=== PATIENT | female | born 1945 | race Caucasian/White ===

== ENCOUNTER 2017-05-03 05:35 | Inpatient (IN) ==
[2017-04-26 13:56] LABS: Basophils # 0.1 10*3/uL (0.0-0.2); Basophils % 0.5 % (0.0-0.8); Eosinophils # 0.2 10*3/uL (0.0-0.87); Eosinophils % 2.5 % (0.00-10.9); Hematocrit 39.4 VOL% (35.7-47.0); Hemoglobin 13.3 GM/DL (12.0-16.0); Immature Granulocytes % 0.7 %; Immature Granulocytes Absolute 0.06 #; Lymphocytes # 2.6 10*3/uL (1.4-4.0); Lymphocytes % 27.7 % (21.3-54.2); Mean Corpuscular HGB Conc 33.8 GM/DL (32-36); Mean Corpuscular Hemoglobin 30 PG (27-34); Mean Corpuscular Volume 88.5 FL (87-102); Mean Platelet Volume 10.1 FL (9.6-12.0); Monocytes # 0.9 10*3/uL (0.11-0.8); Monocytes % 9.2 % (1.7-12.7); Neutrophils # 5.5 10*3/uL (1.4-7.4); Neutrophils % 59.4 % (38.7-73.9); Platelet Count 252 T/CUMM (130-400); Red Blood Count 4.45 MC/CUMM (3.8-5.5); Red Cell Distribution Width 13.1 % (9.3-17.3); White Blood Count 9.2 T/CUMM (4-12)
[2017-04-26 14:05] LABS: Amorphous Crystals,Urine Few /HPF (Few); Apearance,Urine CLOUDY (Clear); Bacteria,Urine Occasional /HPF (Few); Bilirubin,Urine Negative (Negative); Blood, Urine Negative (Negative); Glucose,Urine (UA) Negative (Negative); Ketones,Urine Negative (Negative); Mucus,Urine Occasional /LPF (Occasional); Nitrite,Urine Negative (Negative); Protein,Urine Negative; RBC,Urine 1 /HPF (0-4); Squamous Epithelial Cell,Urine Occasional /HPF (0-10); Urine Color Yellow (Yellow); Urine Urobilinogen < 2.0 EU/DL (0.2-1.0); WBC,Urine 49 /HPF (0-6)
[2017-04-26 14:07] LABS: INR 3.6; PT Patient Result 41.9 SECS; Partial Thromboplastin Time 46.7 SECS (0-40)
--- NOTE | 2017-04-26 14:07 | EKG Report ---
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
[2017-04-26 14:47] LABS: Albumin 3.8 G/DL (3.4-5.0); Bilirubin,Total 0.4 MG/DL (0.2-1.0); Calcium 8.9 MG/DL (8.5-10.1); Osmolality,Calculated 283.4 MOS/KG (273-304); Potassium 3.4 MMOL/L (3.5-5.1); Total Protein 6.5 G/DL (6.4-8.3)
--- NOTE | 2017-04-26 15:21 | XRay Report ---
XR chest 2V Indication: Respiratory preoperative evaluation Comparison: 26 Mar 2016 Findings: The heart and mediastinum are normal in size and configuration. The pulmonary vascularity is normal in caliber. No lung infiltrates, effusions, pneumothorax or other abnormality is demonstrated. Impression: Normal chest x-ray PROCEDURE INTERPRETED AT [facility] DEPARTMENT OF RADIOLOGY Final Report Signed by: Dr. Shaw Valdes
[2017-05-03] MEDS ORDERED: FAMOTIDINE 20 MG TABLET PO ONE (06:00)
[2017-05-03] MEDS ORDERED: LORazepam 1 MG TABLET PO ONE (06:00)
--- NOTE | 2017-05-03 06:46 | History and Physical Update ---
History and Physical Update - History and Physical H&P was reviewed, the patient examined and there: are no changes in the patients condition since last H&P was completed. - Physical Exam Mental Status: alert and oriented Heart: regular rate and rhythm Lung: clear to auscultation (Placed on insulin for diabetic control)
[2017-05-03 07:00] LABS: INR 1.6; PT Patient Result 17.5 SECS
[2017-05-03] MEDS ORDERED: VANCOMYCIN INJ 1,000 MG in SODIUM CHLORIDE 0.9% 250 ML IV ONE ×2 (07:00→21:00)
[2017-05-03 07:32] LABS: INR 1.6; PT Patient Result 17.4 SECS; Partial Thromboplastin Time 32.4 SECS (0-40)
[2017-05-03] MEDS ORDERED: FAMOTIDINE 20 MG TABLET ONE (07:39)
[2017-05-03] MEDS ORDERED: ceFAZolin 1,000 MG VIAL ONE (07:39)
[2017-05-03] MEDS ORDERED: SODIUM CHLORIDE 0.9% 100 ML IV ONE (07:39)
[2017-05-03] MEDS ORDERED: LORazepam 1 MG TABLET ONE (07:39)
[2017-05-03] MEDS ORDERED: VANCOMYCIN 1,000 MG VIAL ONE (07:39)
[2017-05-03] MEDS ORDERED: ROPIVACAINE 0.5% 30 ML VIAL ONE (08:20)
[2017-05-03] MEDS ORDERED: LACTATED RINGERS 1,000 ML IV SCH (09:30)
[2017-05-03] MEDS ORDERED: TRANEXAMIC ACID 1,000 MG/10 ML VIAL IV ONE (09:53)
[2017-05-03] MEDS ORDERED: BACITRACIN OINT 0.9 GM PACK TOP ONE (09:53)
[2017-05-03] MEDS ORDERED: ZALEPLON 5 MG CAPSULE PO PRN (11:05)
[2017-05-03] MEDS ORDERED: GLUCAGON 1 MG VIAL IM PRN (11:05)
[2017-05-03] MEDS ORDERED: MAGNESIUM HYDROXIDE SUSP 30 ML UDCUP PO PRN (11:05)
[2017-05-03] MEDS ORDERED: DEXTROSE 50% 25 GM/50 ML VIAL IV PRN (11:05)
[2017-05-03] MEDS ORDERED: MORPHINE 2 MG/1 ML SYRINGE IV PRN ×2 (11:05)
[2017-05-03] MEDS ORDERED: diphenhydrAMINE CAP 25 MG CAPSULE PO PRN (11:05)
[2017-05-03] MEDS ORDERED: ONDANSETRON 4 MG/2 ML VIAL IV PRN ×2 (11:05→11:27)
--- NOTE | 2017-05-03 11:11 | Operative Note ---
Date of procedure: 05/03/17 Procedure: DIAGNOSIS: Right knee primary osteoarthrosis PROCEDURE: Right total knee arthroplasty (cpt #62837) SURGEON: Migel ANESTHESIA: General with a postoperative adductor canal block PROCEDURE and FINDINGS: After adequate was induced, the patient's knee was prepped and draped in the usual sterile fashion. The limb was exsanguinated with Esmarch. Tourniquet was inflated to 300 mmHg. A median parapatellar approach was made. Femur was cut using an intramedullary guide and a 4 in 1 cutting jig in 5 degrees of valgus. ACL and menisci were excised. Tibia was cut using intramedullary guide. Patella was cut using freehand technique. Components were trialed. Tibial fin was prepared. Components are cemented in place using Palacos cement and modern cementing techniques. Cement was removed. A 1/8 inch Hemovac drain was placed. The knee was well-balanced and full range of motion with central tracking patella. Deep layers closed with 0-0 Vicryl. Superficial layers were closed with 2-0 and 3-0 Vicryl. Skin was approximated with raj. Bacitracin and a sterile dressing was applied. Patient was transferred to recovery. A postoperative adductor canal block is anticipated. COMPONENTS: The Stephen Persona system was used. 7 CR narrow femur, D natural tibia, 10 mm liner, 29 mm patella TOURNIQUET TIME: 44 minutes Surgeon / Physician: Fredy Lainez Jr. Results - Labs CBC & BMP: 04/26/17 13:47 04/26/17 13:47 Discharge Plan - Discharge Medications No Action Glucosamine 1,500 mg PO DAILY Pramipexole [Mirapex] 0.25 mg PO BEDTIME Atenolol 100 mg PO DAILY Losartan [Cozaar] 50 mg PO DAILY Warfarin [Coumadin] 5 mg PO DAILY@1800 Ascorbic Acid [Vitamin C] 1,000 mg PO DAILY Triamterene/Hydrochlorothiazid [Triamterene-Hctz 75-50 mg Tab] 1 each PO DAILY Levothyroxine Tab [Synthroid Tab] 175 mcg PO DAILY@0700 Digoxin Tab [Lanoxin Tab] 0.125 mg PO DAILY Vitamin E 400 unit PO DAILY Sertraline [Zoloft] 25 mg PO DAILY Dicyclomine Cap/Tab [Bentyl Cap/Tab] 10 mg PO DAILY Glimepiride 1 mg PO BID Dicyclomine Cap/Tab [Bentyl Cap/Tab] 10 mg PO QID Atorvastatin [Lipitor] 20 mg PO DAILY Pantoprazole Tab [Protonix Tab] 40 mg PO BID Celecoxib [Celebrex] 200 mg PO DAILY Insulin Degludec [Tresiba Flextouch U-100] 20 unit SQ BEDTIME - Follow Up or Referral - Forms/Instructions
[2017-05-03] MEDS ORDERED: HYDROmorphone 2 MG/1 ML VIAL ONE (11:22)
[2017-05-03] MEDS ORDERED: MIDAZOLAM 2 MG/2 ML VIAL ONE (11:24)
[2017-05-03] MEDS ORDERED: GLYCOPYRROLATE 0.4 MG/2 ML VIAL ONE (11:24)
[2017-05-03] MEDS ORDERED: fentaNYL 100 MCG/2 ML VIAL ONE (11:24)
[2017-05-03] MEDS ORDERED: PROPOFOL 200 MG/20 ML VIAL IV ONE (11:24)
[2017-05-03] MEDS ORDERED: ONDANSETRON 4 MG/2 ML VIAL ONE (11:24)
[2017-05-03] MEDS ORDERED: ePHEDrine 50 MG/ML AMP ONE (11:24)
[2017-05-03] MEDS ORDERED: DESFLURANE 1 UNIT/15 MINUTE INH ONE (11:24)
[2017-05-03] MEDS ORDERED: DEXAMETHASONE 10 MG/1 ML VIAL ONE (11:24)
[2017-05-03] MEDS ORDERED: NEOSTIGMINE 10 MG/10 ML VIAL ONE (11:25)
[2017-05-03] MEDS ORDERED: LACTATED RINGERS 1,000 ML IV ONE (11:25)
[2017-05-03] MEDS ORDERED: ROCURONIUM 100 MG/10 ML VIAL IV ONE (11:25)
[2017-05-03] MEDS: HYDROmorphone 2 MG/1 ML VIAL IV PRN ×4 (11:25→11:58)
[2017-05-03] MEDS: INSULIN LISPRO 100 UNIT/ML SUBCUT SCH ×3 (13:02→21:10)
[2017-05-03] MEDS: KETOROLAC 30 MG/1 ML VIAL IV SCH ×2 (13:21→18:29)
--- NOTE | 2017-05-03 14:57 | Cardiology Consult Note ---
Rachel Slaughter April RN, am scribing for, and in the presence of, Jocelin Cooper MD 14:57. Assessment and Plan - Time spent with patient Time spent with patient: Greater than 30 minutes (Due to assessment, planning, documentation, medication review) (1) Paroxysmal atrial fibrillation Status: Chronic Current Visit: Yes (2) Mild aortic insufficiency Status: Chronic Current Visit: Yes (3) Diabetes mellitus Status: Chronic Current Visit: Yes (4) Hypertension Status: Chronic Current Visit: Yes (5) ANDRIA on CPAP Status: Chronic Current Visit: Yes (6) Status post total left knee replacement Status: Acute Current Visit: Yes History of Present Illness - Data of Consult Patient: known to practice within the last 3 years Consult date: 05/03/17 Requesting Physician: Fredy Lainez Jr. - Consult Narrative Reason for consult: Follow postoperatively History of present illness: Nca Certified Concierge: Dr. Reid Ms. Garcia is a 72 year old female who is routinely followed by Dr. Reid with a history of aortic insufficiency, paroxysmal atrial fibrillation, diabetes, hypertension, thyroid disease, and obstructive sleep apnea (has been reports she uses CPAP nightly). She is sedated and sleeping soundly, the assisted with history. Echo done 04/01/2017 with ejection fraction 60% and aortic valve sclerosis without stenosis. EKG done 620 showed sinus rhythm with heart rate of 58. She had a stress test done at Dr. Reid's office 03/15/2016 that was felt to be negative. Surgical history includes appendectomy, breast biopsy, hysterectomy, and thyroidectomy. Family history of father with lung cancer, sister with heart problems, and mother and siblings with diabetes. She is a lifetime non-smoker. She saw Dr. Reid in the office April 05, 2017 and he thought she was a reasonable risk for the planned left knee replacement. She was admitted today and had left total knee replacement by Dr. Lainez. She is seen now status post surgery and is resting in bed no acute distress. Currently she is sleeping, but her states she was awake earlier. He said she did not complain of chest pain or shortness of breath. Vital signs are stable. Dr. Reid does mention in his note that it was okay for her to stop the Coumadin for the surgery, but that she need to resume it as soon as possible. It is scheduled to be restarted tonight at 5 mg daily. Assessment and plan: 1. Paroxysmal atrial fibrillation-chronic, stable, currently sinus rhythm. She is on Coumadin and this has been restarted. 2. Mild aortic insufficiency-chronic stable. 3. Diabetes mellitus-chronic stable. 4. Hypertension-chronic stable. 5. ANDRIA on CPAP-chronic stable. 6. Status post left total knee replacement CC: Fredy Lainez Jr., - Home Medications and Allergies Home Medications: Home Medications Medication Instructions Recorded Confirmed Type Atenolol 100 mg PO DAILY 09/19/15 05/03/17 History Glucosamine 1,500 mg PO DAILY 09/19/15 05/03/17 History Losartan [Cozaar] 50 mg PO DAILY 09/19/15 05/03/17 History Pramipexole [Mirapex] 0.25 mg PO BEDTIME 09/19/15 05/03/17 History Warfarin [Coumadin] 5 mg PO DAILY@1800 09/19/15 05/03/17 History Ascorbic Acid [Vitamin C] 1,000 mg PO DAILY 09/23/15 05/03/17 History Digoxin Tab [Lanoxin Tab] 0.125 mg PO DAILY 09/23/15 05/03/17 History Levothyroxine Tab [Synthroid Tab] 175 mcg PO DAILY@0700 09/23/15 05/03/17 History Triamterene/Hydrochlorothiazid 1 each PO DAILY 09/23/15 05/03/17 History [Triamterene-Hctz 75-50 mg Tab] Vitamin E 400 unit PO DAILY 09/23/15 05/03/17 History Atorvastatin [Lipitor] 20 mg PO DAILY 04/26/17 05/03/17 History Celecoxib [Celebrex] 200 mg PO DAILY 04/26/17 05/03/17 History Dicyclomine Cap/Tab [Bentyl 10 mg PO QID 04/26/17 05/03/17 History Cap/Tab] Glimepiride 1 mg PO BID 04/26/17 05/03/17 History Pantoprazole Tab [Protonix Tab] 40 mg PO BID 04/26/17 05/03/17 History Sertraline [Zoloft] 25 mg PO DAILY 04/26/17 05/03/17 History Insulin Degludec [Tresiba 20 unit SQ BEDTIME 05/03/17 05/03/17 History Flextouch U-100] Allergies/Adverse Reactions: Allergies Allergy/AdvReac Type Severity Reaction Status Date / Time gabapentin Allergy Severe bp Verified 05/03/17 07:13 decreases severely ROS unobtainable: other (She is sedated) Medical,Surgical,& Family Hx - Medical History Cardio: History of: Cardiac Dysrhythmia (Paroxysmal atrial fibrillation), Hypertension, PVD, Valvular Heart Disease (Mild aortic insufficiency) Psychological: History of: Anxiety Disorders Neurology: History of: Peripheral Neuropathy HEENT: History of: Eye Problem (GLASSES) Endocrine: History of: Diabetes Mellitus (NIDDM), Dyslipidemia, Thyroid Disorder Rheumatology: History of;: Rheumatoid Arthritis Respiratory: History of: Obstructive Sleep Apnea (CPAP) Genitourinary: History of: Bladder Problem (BLADDER SLING), Recurring Urinary Tract Infections Gastrointestinal: History of: GERD Musculoskeletal: History of: Back/Neck Problems (LOWER BACK), Musculoskeletal Problems (BROKEN PELVIS 2006) Reproductive: History of: Ovarian Cysts Other: History of: Miscellaneous Medical Problems (FIBROID TUMOR ON BACK REMOVED 2013) - Surgical History HEENT Surgeries: Surgical HX of: Thyroid Surgery (1991) Abdominal Surgeries: Surgical HX of: Abdominal Surgery, Appendectomy, Colonoscopy Reproductive Surgeries: Surgical HX of;: Breast Surgery (FIBROID TUMORS REMOVED BILATERAL, LEFT BREAST BX), Gynecologic Surgery, Hysterectomy Orthopedic Surgeries: Surgical HX of;: Implanted Devices (LEFT BREAST), Orthopedic Surgery (Left total knee) - Family History Family History: Reports;: Family Cancer (FATHER), Family Diabetes (MOTHER and siblings), Family Heart Disease (Sister), Family Hypertension (MOTHER) - Social History Smoking Status: Never smoker Have you smoked in the last 12 months: No Frequency of Alcohol Use: None Type of Drug Use: None Marital Status: Lives With:: Spouse Functional capacity: uses cane/walker Physical Examination Vital Signs Temp Pulse Resp BP Pulse Ox 97.9 F 55 L 20 150/75 95 05/03/17 07:31 05/03/17 07:31 05/03/17 07:31 05/03/17 07:31 05/03/17 07:31 General: Present: Appears Well, No Apparent Distress HEENT: Present: PERRL, Mucus Membranes Moist Neck: Present: Supple Neck, Midline Trachea, No Bruit Cardiac: Present: Reg Rate and Rhythm, No Murmur, Bradycardia Lungs: Present: Normal Breath Sounds, Oxygen (Via nasal cannula), No Wheeze, Rales, Rhonchi Neuro: Absent: Resting Tremor, Essential Tremor Abdomen: Present: Soft, Active Bowel Sounds, No Masses, Non-Tender. Absent: Distended Skin: Absent: Rash, Suspicious Lesions Musculoskeletal: Present: Decreased Range of Motion, Pain in Joint Gait: Present: Poor Gait Extremities: Present: No Edema, Normal Upper Extr. Pulses, Normal Lower Extr. Pulses, Other (Unable to assess left lower extremity because of dressing). Absent: Normal Gait Result/EKG - Labs CBC & BMP: 04/26/17 13:47 04/26/17 13:47 Lab Results: I have reviewed the past 24 hour labs Labs: Laboratory Results - last 24 hr 05/03/17 05/03/17 05/03/17 06:40 06:40 06:40 INR 1.6 1.6 PT Patient/Control Mix 17.5 D 17.4 Circ Anticoag PTT 32.4 D POC Glucose Blood Type O POSITIVE Antibody Screen Negative 05/03/17 05/03/17 06:41 13:01 INR PT Patient/Control Mix Circ Anticoag PTT POC Glucose 167 H 193 H Blood Type Antibody Screen IKenneth Jennifer, MD, personally performed the services described in this documentation, ascribed by Nydia Ramos RN in my presence, and it is both accurate and complete 457 .
[2017-05-03] MEDS: ACETAMINOPHEN 500 MG TABLET PO SCH ×3 (15:00→21:18)
[2017-05-03] MEDS: GLIMEPIRIDE 2 MG TABLET PO SCH (16:57)
--- NOTE | 2017-05-03 17:33 | Orthopedic Progress Note ---
Orthopedics - Subjective Interval history: Comfortable postop. She was able to work with therapy in the bed. Dressing clean, dry and intact. Right foot and ankle neurovascularly unchanged. Plan: Continue with orders. Exam - Constitutional Vitals: Period Temp Pulse Resp BP Sys/Soria Pulse Ox Last 24 Hr 97.7 F-98.3 F 50-68 16-20 98-151/56-75 93-99 Results - Labs CBC & BMP: 04/26/17 13:47 04/26/17 13:47
[2017-05-03] MEDS: DICYCLOMINE 10 MG CAPSULE PO SCH ×3 (18:03→21:10)
[2017-05-03] MEDS: WARFARIN 5 MG TABLET PO SCH (18:03)
[2017-05-03] MEDS: oxyCODONE IR 5 MG TABLET PO PRN (18:03)
[2017-05-03] MEDS: LACTATED RINGERS 1,000 ML IV SCH (18:04)
[2017-05-03] MEDS: ceFAZolin 2,000 MG in PREMIX 1 EACH IV SCH (18:05)
[2017-05-03] MEDS: PRAMIPEXOLE 0.25 MG TABLET PO SCH (21:10)
[2017-05-03] MEDS: DOCUSATE SODIUM 100 MG CAPSULE PO SCH (21:10)
[2017-05-03] MEDS: PANTOPRAZOLE 40 MG TABLET PO SCH (21:10)
[2017-05-03] MEDS: TRESIBA SQ SCH (21:15)
[2017-05-04] MEDS: LACTATED RINGERS 1,000 ML IV SCH (00:19)
[2017-05-04] MEDS: KETOROLAC 30 MG/1 ML VIAL IV SCH ×2 (00:41→06:06)
[2017-05-04] MEDS: ceFAZolin 2,000 MG in PREMIX 1 EACH IV SCH (02:36)
[2017-05-04] MEDS: ACETAMINOPHEN 500 MG TABLET PO SCH ×2 (02:41→09:44)
[2017-05-04] MEDS: oxyCODONE IR 5 MG TABLET PO PRN ×2 (04:24→13:54)
[2017-05-04 05:15] LABS: Basophils % 0.1 % (0.0-0.8); Hematocrit 29.8 VOL% (35.7-47.0); Immature Granulocytes % 0.9 %; Lymphocytes # 1.2 10*3/uL (1.4-4.0); Lymphocytes % 10.6 % (21.3-54.2); Mean Corpuscular HGB Conc 33.6 GM/DL (32-36); Mean Corpuscular Hemoglobin 30 PG (27-34); Mean Platelet Volume 10.5 FL (9.6-12.0); Monocytes # 0.9 10*3/uL (0.11-0.8); Monocytes % 8.5 % (1.7-12.7); Neutrophils # 8.9 10*3/uL (1.4-7.4); Neutrophils % 79.9 % (38.7-73.9); Platelet Count 176 T/CUMM (130-400); Red Blood Count 3.31 MC/CUMM (3.8-5.5); Red Cell Distribution Width 13.2 % (9.3-17.3); White Blood Count 11.1 T/CUMM (4-12)
[2017-05-04 05:33] LABS: INR 1.4
[2017-05-04 05:49] LABS: Calcium 7.7 MG/DL (8.5-10.1)
[2017-05-04] MEDS: LEVOTHYROXINE 175 MCG TABLET PO SCH (06:06)
--- NOTE | 2017-05-04 08:00 | Orthopedic Progress Note ---
Orthopedics - Subjective Interval history: Doing well post op. dressing dry. nv ok. mobilize with therapy. check xrays. Exam - Constitutional Vitals: Period Temp Pulse Resp BP Sys/Soria Pulse Ox Last 24 Hr 97.0 F-98.7 F 50-70 16-20 98-157/56-69 93-99 Results - Labs CBC & BMP: 05/04/17 04:27 05/04/17 04:27
[2017-05-04] MEDS ORDERED: DICYCLOMINE 10 MG CAPSULE PO SCH (09:00)
[2017-05-04] MEDS: SERTRALINE 25 MG TABLET PO SCH (09:43)
[2017-05-04] MEDS: GLUCOSAMINE 500 MG TABLET PO SCH (09:44)
[2017-05-04] MEDS: DOCUSATE SODIUM 100 MG CAPSULE PO SCH ×2 (09:44→21:26)
[2017-05-04] MEDS: ASCORBIC ACID 500 MG TABLET PO SCH (09:44)
[2017-05-04] MEDS: VITAMIN E 400 UNIT CAPSULE PO SCH (09:44)
[2017-05-04] MEDS: PANTOPRAZOLE 40 MG TABLET PO SCH ×2 (09:44→21:26)
[2017-05-04] MEDS: DICYCLOMINE 10 MG CAPSULE PO SCH ×4 (09:44→21:26)
[2017-05-04] MEDS: LOSARTAN 50 MG TABLET PO SCH (09:45)
[2017-05-04] MEDS: INSULIN LISPRO 100 UNIT/ML SUBCUT SCH ×4 (09:45→21:27)
[2017-05-04] MEDS: GLIMEPIRIDE 2 MG TABLET PO SCH ×2 (09:45→16:28)
[2017-05-04] MEDS: ATORVASTATIN 20 MG TABLET PO SCH (09:45)
[2017-05-04] MEDS: TRIAMTERENE/HCTZ 75-50 MG TABLET PO SCH (09:45)
[2017-05-04] MEDS: ATENOLOL 100 MG TABLET PO SCH (11:33)
[2017-05-04] MEDS: DIGOXIN 0.125 MG TABLET PO SCH (12:09)
--- NOTE | 2017-05-04 12:37 | Cardiology Progress Note ---
<Shannon Oconnell E - Last Filed: 05/04/17 12:24> Assessment and Plan - Time spent with patient Time spent with patient: Greater than 30 minutes (1) High risk medication use Status: Chronic Assessment and plan: SEE PLAN OF CARE LISTED BELOW Current Visit: Yes (2) Paroxysmal atrial fibrillation Status: Chronic Assessment and plan: SEE PLAN OF CARE LISTED BELOW Current Visit: Yes (3) Diabetes mellitus Status: Chronic Assessment and plan: SEE PLAN OF CARE LISTED BELOW Current Visit: Yes (4) Hypertension Status: Chronic Assessment and plan: SEE PLAN OF CARE LISTED BELOW Current Visit: Yes (5) ANDRIA on CPAP Status: Chronic Assessment and plan: SEE PLAN OF CARE LISTED BELOW Current Visit: Yes (6) Status post total left knee replacement Status: Chronic Assessment and plan: SEE PLAN OF CARE LISTED BELOW Current Visit: Yes (7) Anemia Status: Acute Assessment and plan: SEE PLAN OF CARE LISTED BELOW Current Visit: Yes Cardiology - PN: Subj Interval history: BRANCH LENDING OFFICER: DR. WHITMAN Ms. Garcia, 72WF, has history of PAF (for which she takes Coumadin for stroke prevention), diabetes, hypertension, thyroid disease, and obstructive sleep apnea (has been reports she uses CPAP nightly). Echocardiogram 2015: EF 60%, no significant valvular abnormality. Stress test March 15, 2016: No evidence of reversible ischemia, low risk. Patient was admitted May 03, 2017 for elective left total knee arthroplasty. She underwent said procedure without complication. Cardiology was consulted for management of her atrial fibrillation. MAY 04, 2017: Overnight, patient has done well. She denies having significant pain and appears very comfortable. She has just completed exercises with the physical therapist and tolerated well. Denies chest pain, heaviness, tightness or shortness of breath. On arrival, INR was 1.6. This morning it is 1.4. Home dose of Coumadin was initiated last evening. We will continue to follow her INRs daily as well as other labs. Overall, blood pressures have been adequately controlled on beta tunde, ARB. Heart rate well controlled as well. Hopefully, patient may be eligible for discharge tomorrow or Tuesday. ASSESSMENT/PLAN: 1. PAF - upon examination seems to be in normal sinus rhythm. Coumadin was reinitiated last evening. Continue to follow INRs daily. 2. HYPERTENSION - overall, adequately controlled on beta blockade and ARB. 3. DIABETES - continue current plan of care 4. ANDRIA - uses sleep device routinely 5. HIGH RISK MEDICATION - Coumadin for stroke prevention. TRINA VASC SCORE 4. 6. S/P LEFT TOTAL KNEE ARTHROPLASTY - progressing well post knee surgery. 7. ANEMIA - stable post surgery. Continue to follow daily. Exam (Progress Note) - Constitutional Vitals: Period Temp Pulse Resp BP Sys/Soria Pulse Ox Last 24 Hr 97.0 F-98.7 F 50-70 16-20 123-159/57-69 93-99 Exam: General: [Appears well with no apparent distress.] [Pleasant and cooperative. ] [Appears comfortable.] HEENT: [PERRL, normocephalic, atraumatic. Mucous membranes moist. No jaundice noted. Conjunctiva moist and clear, sclerae anicteric] Neck: No JVD/HJR, no thyromegaly or lymphadenopathy noted. No carotid bruit appreciated Cardiac: [Regular rate and rhythm.] [No obvious murmur, rub or gallop.] Lungs: [Clear to auscultation without accessory muscle use to assist the respiratory pattern.] Not requiring oxygen Abdomen: Soft, bowel sounds normoactive. Nontender and nondistended. No abdominal bruit or thrill noted. No masses noted. Musculoskeletal: Pain to left knee with movement. No decreased range of motion is noted to other extremities, excluding left lower extremity. Extremities: No clubbing, cyanosis noted. [ No edema noted.] Upper extremity pulses 2+. Lower extremity pulses 2+. Left knee with intact equipment. Capillary refill less than 3 seconds. Skin: No unusual lesions or rashes. No skin breakdown appreciated. Neuro: Awake, alert and oriented 3. No essential tremor is appreciated. Result/EKG - Labs CBC & BMP: 05/04/17 04:27 05/04/17 04:27 Lab Results: I have reviewed the past 24 hour labs Labs: Laboratory Results - last 24 hr 05/03/17 05/03/17 05/03/17 13:01 15:23 18:51 WBC RBC Hgb Hct MCV MCH MCHC RDW Plt Count MPV Neut % (Auto) Lymph % (Auto) [place] % (Auto) Eos % (Auto) Baso % (Auto) Neut # (Auto) Lymph # (Auto) [place] # (Auto) Eos # (Auto) Baso # (Auto) Immature Gran % Nucleated RBC % Immature Gran # Nucleated RBCs # INR PT Patient/Control Mix Sodium Potassium Chloride Carbon Dioxide Anion Gap BUN Creatinine GFR Calculation BUN/Creatinine Ratio Glucose POC Glucose 193 H 210 H 195 H Calculated Osmolality Calcium 05/04/17 05/04/17 05/04/17 04:27 04:27 04:28 WBC 11.1 RBC 3.31 L Hgb 10.0 L Hct 29.8 L MCV 90.0 MCH 30 MCHC 33.6 RDW 13.2 Plt Count 176 MPV 10.5 Neut % (Auto) 79.9 H Lymph % (Auto) 10.6 L [place] % (Auto) 8.5 Eos % (Auto) 0.0 Baso % (Auto) 0.1 Neut # (Auto) 8.9 H Lymph # (Auto) 1.2 L [place] # (Auto) 0.9 H Eos # (Auto) 0.0 Baso # (Auto) 0.0 Immature Gran % 0.9 Nucleated RBC % 0.0 Immature Gran # 0.10 Nucleated RBCs # 0.00 INR 1.4 PT Patient/Control Mix 15.0 Sodium 143 Potassium 4.0 Chloride 105 Carbon Dioxide 26 Anion Gap 16.0 H BUN 22 H Creatinine 1.00 GFR Calculation 67 BUN/Creatinine Ratio 22.00 H Glucose 170 H POC Glucose Calculated Osmolality 291.0 Calcium 7.7 L 05/04/17 07:00 WBC RBC Hgb Hct MCV MCH MCHC RDW Plt Count MPV Neut % (Auto) Lymph % (Auto) [place] % (Auto) Eos % (Auto) Baso % (Auto) Neut # (Auto) Lymph # (Auto) [place] # (Auto) Eos # (Auto) Baso # (Auto) Immature Gran % Nucleated RBC % Immature Gran # Nucleated RBCs # INR PT Patient/Control Mix Sodium Potassium Chloride Carbon Dioxide Anion Gap BUN Creatinine GFR Calculation BUN/Creatinine Ratio Glucose POC Glucose 163 H Calculated Osmolality Calcium <Jocelin Cooper - Last Filed: 05/04/17 15:40> Assessment and Plan (1) Paroxysmal atrial fibrillation Status: Chronic Current Visit: Yes (2) Mild aortic insufficiency Status: Chronic Current Visit: Yes (3) Diabetes mellitus Status: Chronic Current Visit: Yes (4) Hypertension Status: Chronic Current Visit: Yes (5) ANDRIA on CPAP Status: Chronic Current Visit: Yes (6) Status post total left knee replacement Status: Chronic Current Visit: Yes Cardiology - PN: Subj Interval history: I have personally interviewed and evaluated the patient, reviewed the chart and discussed medical decision-making with Practitioner Kourtney. I have read this note and agree with her documentation here in. Exam (Progress Note) - Constitutional Vitals: Period Temp Pulse Resp BP Sys/Soria Pulse Ox Last 24 Hr 97.0 F-98.7 F 52-70 16-20 123-159/57-66 93-98 Result/EKG - Labs CBC & BMP: 05/04/17 04:27 05/04/17 04:27 Labs: Laboratory Results - last 24 hr 05/03/17 05/03/17 05/04/17 15:23 18:51 04:27 WBC 11.1 RBC 3.31 L Hgb 10.0 L Hct 29.8 L MCV 90.0 MCH 30 MCHC 33.6 RDW 13.2 Plt Count 176 MPV 10.5 Neut % (Auto) 79.9 H Lymph % (Auto) 10.6 L [place] % (Auto) 8.5 Eos % (Auto) 0.0 Baso % (Auto) 0.1 Neut # (Auto) 8.9 H Lymph # (Auto) 1.2 L [place] # (Auto) 0.9 H Eos # (Auto) 0.0 Baso # (Auto) 0.0 Immature Gran % 0.9 Nucleated RBC % 0.0 Immature Gran # 0.10 Nucleated RBCs # 0.00 INR PT Patient/Control Mix Sodium Potassium Chloride Carbon Dioxide Anion Gap BUN Creatinine GFR Calculation BUN/Creatinine Ratio Glucose POC Glucose 210 H 195 H Calculated Osmolality Calcium 05/04/17 05/04/17 05/04/17 04:27 04:28 07:00 WBC RBC Hgb Hct MCV MCH MCHC RDW Plt Count MPV Neut % (Auto) Lymph % (Auto) [place] % (Auto) Eos % (Auto) Baso % (Auto) Neut # (Auto) Lymph # (Auto) [place] # (Auto) Eos # (Auto) Baso # (Auto) Immature Gran % Nucleated RBC % Immature Gran # Nucleated RBCs # INR 1.4 PT Patient/Control Mix 15.0 Sodium 143 Potassium 4.0 Chloride 105 Carbon Dioxide 26 Anion Gap 16.0 H BUN 22 H Creatinine 1.00 GFR Calculation 67 BUN/Creatinine Ratio 22.00 H Glucose 170 H POC Glucose 163 H Calculated Osmolality 291.0 Calcium 7.7 L
--- NOTE | 2017-05-04 15:01 | Anesthesia Post-Op ---
Anesthesia Post OP - Post Ansesthetic Evaluation Patient seen in post op: Yes Resp: within normal limits CV: within normal limits Mental: within normal limits Temp: within normal limits Fhmr-Rj-Ldkqmdhld: within normal limits Nausea and Vomiting: within normal limits Pain: within normal limits Patient seen at: date (05/03/17), time (1140)
--- NOTE | 2017-05-04 16:12 | XRay Report ---
XR knee 2V LT Indication: Postop left TKA. Left knee 2 views: Straight leg splint, skin raj and hardware from TKA are now present. Alignment is anatomic. No periprosthetic fracture shown. Impression: Immediate postoperative changes TKA. PROCEDURE INTERPRETED AT [facility] DEPARTMENT OF RADIOLOGY Final Report Signed by: William Bell M.D.
[2017-05-04] MEDS: CELECOXIB 200 MG CAPSULE PO SCH (16:28)
[2017-05-04] MEDS: WARFARIN 5 MG TABLET PO SCH (17:18)
[2017-05-04] MEDS: PRAMIPEXOLE 0.25 MG TABLET PO SCH (21:26)
[2017-05-04] MEDS: TRESIBA SQ SCH (21:27)
[2017-05-05 05:39] LABS: Basophils % 0.2 % (0.0-0.8); Eosinophils # 0.4 10*3/uL (0.0-0.87); Eosinophils % 3.6 % (0.00-10.9); Hematocrit 31.7 VOL% (35.7-47.0); Hemoglobin 10.3 GM/DL (12.0-16.0); Immature Granulocytes % 0.8 %; Immature Granulocytes Absolute 0.08 #; Lymphocytes # 2.6 10*3/uL (1.4-4.0); Lymphocytes % 26.6 % (21.3-54.2); Mean Corpuscular HGB Conc 32.5 GM/DL (32-36); Mean Corpuscular Hemoglobin 30 PG (27-34); Mean Corpuscular Volume 91.6 FL (87-102); Mean Platelet Volume 10.1 FL (9.6-12.0); Monocytes # 0.8 10*3/uL (0.11-0.8); Neutrophils % 60.8 % (38.7-73.9); Platelet Count 177 T/CUMM (130-400); Red Blood Count 3.46 MC/CUMM (3.8-5.5); Red Cell Distribution Width 13.6 % (9.3-17.3); White Blood Count 9.8 T/CUMM (4-12)
[2017-05-05 05:42] LABS: INR 1.5; PT Patient Result 16.3 SECS
[2017-05-05 06:01] LABS: Magnesium 1.8 MG/DL (1.8-2.4); Osmolality,Calculated 292.6 MOS/KG (273-304); Potassium 3.9 MMOL/L (3.5-5.1)
[2017-05-05] MEDS: LEVOTHYROXINE 175 MCG TABLET PO SCH (06:12)
--- NOTE | 2017-05-05 07:36 | Discharge Summary ---
Hospital Course - Hospital Course Hospital Course: Chiqui Garcia was admitted after undergoing a left total knee arthroplasty. She received perioperative DVT and antimicrobial prophylaxis. She received physical therapy. She was discharged home in stable condition with home health therapy. Discharge Plan - Discharge Data Disposition: Home Health Service Condition at Discharge: Discharge Diet: diabetic diet Hygiene: may shower Weight Bearing at Discharge: weight bear as tolerated Driving: not until seen by doctor - Discharge Medications Continue Glucosamine 1,500 mg PO DAILY Pramipexole [Mirapex] 0.25 mg PO BEDTIME Atenolol 100 mg PO DAILY Losartan [Cozaar] 50 mg PO DAILY Warfarin [Coumadin] 5 mg PO DAILY@1800 Ascorbic Acid [Vitamin C] 1,000 mg PO DAILY Triamterene/Hydrochlorothiazid [Triamterene-Hctz 75-50 mg Tab] 1 each PO DAILY Levothyroxine Tab [Synthroid Tab] 175 mcg PO DAILY@0700 Digoxin Tab [Lanoxin Tab] 0.125 mg PO DAILY Vitamin E 400 unit PO DAILY Sertraline [Zoloft] 25 mg PO DAILY Glimepiride 1 mg PO BID Dicyclomine Cap/Tab [Bentyl Cap/Tab] 10 mg PO QID Atorvastatin [Lipitor] 20 mg PO DAILY Pantoprazole Tab [Protonix Tab] 40 mg PO BID Celecoxib [Celebrex] 200 mg PO DAILY Insulin Degludec [Tresiba Flextouch U-100] 20 unit SQ BEDTIME - Follow Up or Referral - Forms/Instructions Additional Discharge Instructions: Daily dry dressing changes. Weightbearing as tolerated. CPM for 3 weeks. Arrange walker and bedside commode for home use. Wear VANIA hose for 1 month. Discontinue raj and Steri-Strip wound on May 09, 2017. Follow-up appointment in 3-4 weeks. Recheck INR in 2 weeks. Prescription for [place] 7.5 with 30 tablets was written. Exam - Constitutional Vitals: Period Temp Pulse Resp BP Sys/Soria Pulse Ox Last 24 Hr 97.1 F-98.1 F 47-68 18-20 113-159/49-66 95-98 Discharge Results Procedures and tests throughout hospitalization: Pending Orders 05/06/17 04:00 Comp Blood Count Auto Diff IN AM Prothrombin Time INR IN AM Labs on day of discharge: Labs from last 24 hours 05/05/17 05/05/1717 05:09 05:09 05:09 WBC 9.8 RBC 3.46 L Hgb 10.3 L Hct 31.7 L MCV 91.6 MCH 30 MCHC 32.5 RDW 13.6 Plt Count 177 MPV 10.1 Neut % (Auto) 60.8 Lymph % (Auto) 26.6 [place] % (Auto) 8.0 Eos % (Auto) 3.6 Baso % (Auto) 0.2 Neut # (Auto) 6.0 Lymph # (Auto) 2.6 [place] # (Auto) 0.8 Eos # (Auto) 0.4 Baso # (Auto) 0.0 Immature Gran % 0.8 Nucleated RBC % 0.0 Immature Gran # 0.08 Nucleated RBCs # 0.00 INR 1.5 PT Patient/Control Mix 16.3 Sodium 146 H Potassium 3.9 Chloride 108 H Carbon Dioxide 29 Anion Gap 12.9 BUN 20 H Creatinine 0.80 GFR Calculation 88 BUN/Creatinine Ratio 25.00 H Glucose 104 Calculated Osmolality 292.6 Calcium 8.0 L Magnesium 1.8 DS: Provider Date of admission: 05/03/17 05:35 Primary care physician: Shakeel Long MD Attending physician on admission: Fredy Lainez Jr., Consults: 05/03/17 11:06 Consult to Case Mgmt/Social Srvs [CONS] Routine Reason for Case Mgmt/Social Srvs: Rehab Home Health Equipment Consult Comment: CPM Machine deliver to room 324 before D/C; Pt 5ft 5in 216 lbs. Consult to Occupational Therapy [CONS] Routine Reason for Occupational Therapy: Evaluate and Treat Consult Comment: ADL's Consult to Physical Therapy [CONS] Routine Reason for Physical Therapy: Evaluate and Treat Gait Training Start Therapy: Today 05/03/17 12:38 Consult to Physician [CONS] Routine Comment: Consulting Provider: Tyrell Reid Consulting Provider Notified: Yes When should Consulting Provider be notified: Now Person Notified: teri called Date Notified: 05/03/17 Time Notified: 12:41 Discharging clinician: Fredy Lainez Jr., Expected date of discharge: 05/05/17
--- NOTE | 2017-05-05 07:41 | Orthopedic Progress Note ---
Orthopedics - Subjective Interval history: comfortable walked a short distance in the miranda. Dressing clean, dry and intact. Left lower extremity neurovascularly unchanged. Plan: Start CPM today. She may be discharged home later today if she passes physical therapy. Exam - Constitutional Vitals: Period Temp Pulse Resp BP Sys/Soria Pulse Ox Last 24 Hr 97.1 F-98.1 F 47-68 18-20 113-159/49-66 95-98 Results - Labs CBC & BMP: 05/05/17 05:09 05/05/17 05:09
[2017-05-05] MEDS: INSULIN LISPRO 100 UNIT/ML SUBCUT SCH ×2 (10:25→11:02)
[2017-05-05] MEDS: GLIMEPIRIDE 2 MG TABLET PO SCH (11:00)
[2017-05-05] MEDS: DICYCLOMINE 10 MG CAPSULE PO SCH ×2 (11:00→12:02)
[2017-05-05] MEDS: VITAMIN E 400 UNIT CAPSULE PO SCH (11:01)
[2017-05-05] MEDS: ATENOLOL 100 MG TABLET PO SCH (11:01)
[2017-05-05] MEDS: PANTOPRAZOLE 40 MG TABLET PO SCH (11:01)
[2017-05-05] MEDS: LOSARTAN 50 MG TABLET PO SCH (11:01)
[2017-05-05] MEDS: TRIAMTERENE/HCTZ 75-50 MG TABLET PO SCH (11:01)
[2017-05-05] MEDS: ASCORBIC ACID 500 MG TABLET PO SCH (11:01)
[2017-05-05] MEDS: ATORVASTATIN 20 MG TABLET PO SCH (11:01)
[2017-05-05] MEDS: SERTRALINE 25 MG TABLET PO SCH (11:01)
[2017-05-05] MEDS: DOCUSATE SODIUM 100 MG CAPSULE PO SCH (11:01)
[2017-05-05] MEDS: GLUCOSAMINE 500 MG TABLET PO SCH (11:01)
[2017-05-05] MEDS: CELECOXIB 200 MG CAPSULE PO SCH (11:01)
[2017-05-05] MEDS: oxyCODONE IR 5 MG TABLET PO PRN (11:02)
[2017-05-05 11:28] VITALS: BP 170/76
[2017-05-05] MEDS: DIGOXIN 0.125 MG TABLET PO SCH (12:02)
--- NOTE | 2017-05-05 12:19 | Pathology Report from [facility] ---
[facility] ACCESSION # : [id number] PATIENT NAME : Katlyn Stratton ORDERING DR : CARMENZA NGUYEN MD CLINICAL HX: LT knee osteoarthritis POST-OP DX: Same SPECIMEN INFO: LT knee bone & tissue GROSS DESCRIPTION: Received in formalin labeled KATLYN STRATTON are fragments of cartilage, bone and adipose tissue measuring 8 x 9.5 cm. The articular surfaces are focally degenerative with peripheral areas of cartilage lipping. Technical Operator sections are submitted in one cassette following decalcification. DIAGNOSIS FOR KATLYN STRATTON: LEFT KNEE BONE & TISSUE, TOTAL REPLACEMENT: Osteoarthritis. COLLECTED DATE: 05/03/2017 [facility] REPORT DATE: 05/05/2017 ELECTRONICALLY SIGNED BY: Gaurav Stratton M.D. 05/05/2017 - 9:54:17 [email or web address]
== END 2017-05-05 15:39 | disposition home health service (06) | DRG 470 ==
LOC: N.SDSINP 05:35 → N.3E 09:43
PROVIDERS: ADMIT Orthopaedic Surgery; ATTEND Orthopaedic Surgery

== ENCOUNTER 2018-12-20 12:14 | Inpatient (IN) ==
[2018-12-20] MEDS ORDERED: GLUCAGON 1 MG VIAL IM PRN (12:26)
[2018-12-20] MEDS ORDERED: DEXTROSE 50% 25 GM/50 ML VIAL IV PRN (12:26)
[2018-12-20] MEDS ORDERED: ACETAMINOPHEN 325 MG TABLET PO PRN (12:26)
[2018-12-20] MEDS ORDERED: ONDANSETRON 4 MG/2 ML VIAL IV PRN (12:26)
[2018-12-20] MEDS ORDERED: MORPHINE 4 MG/1 ML VIAL IV PRN (12:29)
[2018-12-20 14:27] LABS: Basophils # 0.1 10*3/uL (0.0-0.2); Basophils % 0.7 % (0.0-0.8); Eosinophils # 0.2 10*3/uL (0.0-0.87); Eosinophils % 1.9 % (0.00-10.9); Hematocrit 39.4 VOL% (35.7-47.0); Hemoglobin 12.8 GM/DL (12.0-16.0); Immature Granulocytes % 0.5 %; Immature Granulocytes Absolute 0.04 #; Lymphocytes # 1.5 10*3/uL (1.4-4.0); Lymphocytes % 17.8 % (21.3-54.2); Mean Corpuscular HGB Conc 32.5 GM/DL (32-36); Mean Corpuscular Hemoglobin 29 PG (27-34); Mean Corpuscular Volume 90.2 FL (87-102); Mean Platelet Volume 10.3 FL (9.6-12.0); Monocytes # 0.5 10*3/uL (0.11-0.8); Monocytes % 5.4 % (1.7-12.7); Neutrophils # 6.2 10*3/uL (1.4-7.4); Neutrophils % 73.7 % (38.7-73.9); Platelet Count 246 T/CUMM (130-400); Red Blood Count 4.37 MC/CUMM (3.8-5.5); Red Cell Distribution Width 13.2 % (9.3-17.3); White Blood Count 8.5 T/CUMM (4-12)
[2018-12-20 14:45] LABS: Alanine Aminotransferase 28 U/L (13-56); Albumin 3.7 G/DL (3.4-5.0); Alkaline Phosphatase 111 U/L (45-117); Aspartate Amino Transferase 21 U/L (0-37); Bilirubin,Total < 0.39 MG/DL (0.2-1.0); Blood Urea Nitrogen 20 MG/DL (7-18); Calcium 8.5 MG/DL (8.5-10.1); Glucose 154 MG/DL (74-106); Osmolality,Calculated 282.5 MOS/KG (273-304); Potassium 3.5 MMOL/L (3.5-5.1); Sodium 139 MMOL/L (136-145); Total Protein 7.2 G/DL (6.4-8.3)
[2018-12-20] MEDS: SODIUM CHLORIDE 0.45% 1,000 ML IV SCH (14:52)
[2018-12-20] MEDS: PIPERACILLIN/TAZOBACTAM 3,375 MG in SODIUM CHLORIDE 0.9% 100 ML IV SCH (14:59)
[2018-12-20] MEDS: DICYCLOMINE 10 MG CAPSULE PO SCH ×2 (16:38→20:30)
[2018-12-20] MEDS: INSULIN LISPRO 100 UNIT/ML SUBCUT SCH (16:38)
[2018-12-20 16:53] LABS: PT Patient Result 21.1 SECS
[2018-12-20 19:43] LABS: Apearance,Urine CLEAR (Clear); Bilirubin,Urine Negative (Negative); Blood, Urine Negative (Negative); Glucose,Urine (UA) Negative (Negative); Ketones,Urine Negative (Negative); Nitrite,Urine Negative (Negative); Protein,Urine Negative; RBC,Urine 1 /HPF (0-4); Urine Color Straw (Yellow); Urine Urobilinogen < 2.0 EU/DL (0.2-1.0); WBC,Urine 3 /HPF (0-6)
[2018-12-20] MEDS: DOCUSATE SODIUM 100 MG CAPSULE PO SCH (20:29)
[2018-12-20] MEDS: ASCORBIC ACID 500 MG TABLET PO SCH (20:29)
[2018-12-20] MEDS: PANTOPRAZOLE 40 MG TABLET PO SCH (20:29)
[2018-12-20] MEDS: DONEPEZIL 10 MG TABLET PO SCH (20:30)
[2018-12-20] MEDS: PRAMIPEXOLE 0.25 MG TABLET PO SCH (20:30)
[2018-12-21] MEDS: PIPERACILLIN/TAZOBACTAM 3,375 MG in SODIUM CHLORIDE 0.9% 100 ML IV SCH ×3 (01:10→16:08)
[2018-12-21 06:10] LABS: Risk Ratio 2.51; VLDL CHOLESTEROL 28.6 MG/DL
[2018-12-21] MEDS ORDERED: PANTOPRAZOLE 40 MG TABLET PO SCH (09:00)
[2018-12-21] MEDS: LEVOTHYROXINE 150 MCG TABLET PO SCH (09:11)
[2018-12-21] MEDS: LORATADINE 10 MG TABLET PO SCH (09:11)
[2018-12-21] MEDS: sitaGLIPtin 100 MG TABLET PO SCH (09:11)
[2018-12-21] MEDS: ATENOLOL 50 MG TABLET PO SCH (09:11)
[2018-12-21] MEDS: DICYCLOMINE 10 MG CAPSULE PO SCH ×4 (09:11→20:16)
[2018-12-21] MEDS: ASCORBIC ACID 500 MG TABLET PO SCH ×2 (09:11→20:17)
[2018-12-21] MEDS: PANTOPRAZOLE 40 MG TABLET PO SCH ×2 (09:11→20:17)
[2018-12-21] MEDS: ATORVASTATIN 10 MG TABLET PO SCH (09:11)
[2018-12-21] MEDS: GLIMEPIRIDE 2 MG TABLET PO SCH (09:11)
[2018-12-21] MEDS: FUROSEMIDE 40 MG TABLET PO SCH (09:11)
[2018-12-21] MEDS: LOSARTAN 50 MG TABLET PO SCH (09:12)
[2018-12-21] MEDS: TRIAMTERENE/HCTZ 75-50 MG TABLET PO SCH (09:12)
[2018-12-21] MEDS: MELOXICAM 7.5 MG TABLET PO SCH (09:12)
[2018-12-21] MEDS: DOCUSATE SODIUM 100 MG CAPSULE PO SCH ×2 (09:12→20:17)
[2018-12-21] MEDS: SELENIUM 200 MCG TABLET PO SCH (09:12)
[2018-12-21] MEDS: MONTELUKAST 10 MG TABLET PO SCH (09:12)
[2018-12-21] MEDS: SERTRALINE 25 MG TABLET PO SCH (09:12)
[2018-12-21] MEDS: INSULIN LISPRO 100 UNIT/ML SUBCUT SCH ×2 (09:20→16:05)
[2018-12-21] MEDS: SODIUM CHLORIDE 0.45% 1,000 ML IV SCH (16:14)
[2018-12-21] MEDS ORDERED: WARFARIN 5 MG TABLET PO SCH (18:00)
[2018-12-21] MEDS: DONEPEZIL 10 MG TABLET PO SCH (20:16)
[2018-12-21] MEDS: PRAMIPEXOLE 0.25 MG TABLET PO SCH (20:17)
[2018-12-22] MEDS: PIPERACILLIN/TAZOBACTAM 3,375 MG in SODIUM CHLORIDE 0.9% 100 ML IV SCH ×2 (01:14→12:52)
[2018-12-22 07:11] LABS: INR 1.5; PT Patient Result 16.4 SECS
[2018-12-22] MEDS: INSULIN LISPRO 100 UNIT/ML SUBCUT SCH (07:25)
[2018-12-22] MEDS ORDERED: PROPOFOL 200 MG/20 ML VIAL IV ONE (10:00)
[2018-12-22] MEDS ORDERED: LIDOCAINE 100 MG/5 ML SYRINGE ONE (10:00)
[2018-12-22] MEDS: DICYCLOMINE 10 MG CAPSULE PO SCH ×2 (11:55→12:58)
[2018-12-22] MEDS: SODIUM CHLORIDE 0.45% 1,000 ML IV SCH (11:55)
[2018-12-22] MEDS: LEVOTHYROXINE 150 MCG TABLET PO SCH (11:55)
[2018-12-22] MEDS: GLIMEPIRIDE 2 MG TABLET PO SCH (11:56)
[2018-12-22] MEDS: DOCUSATE SODIUM 100 MG CAPSULE PO SCH (11:56)
[2018-12-22 12:20] VITALS: BP 136/55
[2018-12-22] MEDS: sitaGLIPtin 100 MG TABLET PO SCH (12:54)
[2018-12-22] MEDS: LOSARTAN 50 MG TABLET PO SCH (12:55)
[2018-12-22] MEDS: SERTRALINE 25 MG TABLET PO SCH (12:55)
[2018-12-22] MEDS: FUROSEMIDE 40 MG TABLET PO SCH (12:55)
[2018-12-22] MEDS: LORATADINE 10 MG TABLET PO SCH (12:56)
[2018-12-22] MEDS: ASCORBIC ACID 500 MG TABLET PO SCH (12:56)
[2018-12-22] MEDS: ATENOLOL 50 MG TABLET PO SCH (12:56)
[2018-12-22] MEDS: MONTELUKAST 10 MG TABLET PO SCH (12:56)
[2018-12-22] MEDS: PANTOPRAZOLE 40 MG TABLET PO SCH (12:56)
[2018-12-22] MEDS: MELOXICAM 7.5 MG TABLET PO SCH (12:56)
[2018-12-22] MEDS: TRIAMTERENE/HCTZ 75-50 MG TABLET PO SCH (12:57)
[2018-12-22] MEDS: ATORVASTATIN 10 MG TABLET PO SCH (12:57)
[2018-12-22] MEDS: SELENIUM 200 MCG TABLET PO SCH (12:57)
[2018-12-23] MEDS ORDERED: WARFARIN 5 MG TABLET PO SCH (18:00)
== END 2018-12-22 16:01 | disposition home or self-care (01) | DRG 445 ==
LOC: N.2E 13:24
PROVIDERS: ADMIT Family Medicine; ATTEND Family Medicine

== ENCOUNTER 2019-12-25 00:06 | Inpatient (IN) ==
[2019-12-25] MEDS ORDERED: ONDANSETRON 4 MG/2 ML VIAL IV STA (00:34)
[2019-12-25] MEDS ORDERED: SODIUM CHLORIDE 0.9% 500 ML IV STA ×2 (00:34→02:02)
[2019-12-25 01:14] LABS: INR 1.7; PT Patient Result 18.6 SECS (9.6-12.2)
[2019-12-25 01:34] LABS: Basophils # 0.1 10*3/uL (0.0-0.2); Basophils % 0.5 % (0.0-0.8); Eosinophils # 0.2 10*3/uL (0.0-0.87); Eosinophils % 1.3 % (0.00-10.9); Hematocrit 38.4 VOL% (35.7-47.0); Hemoglobin 13.1 GM/DL (12.0-16.0); Immature Granulocytes % 0.6 %; Immature Granulocytes Absolute 0.07 #; Lymphocytes # 1.8 10*3/uL (1.4-4.0); Lymphocytes % 14.5 % (21.3-54.2); Mean Corpuscular HGB Conc 34.1 GM/DL (32-36); Mean Corpuscular Volume 89.9 FL (87-102); Mean Platelet Volume 10.7 FL (9.6-12.0); Monocytes % 7.4 % (1.7-12.7); Neutrophils % 75.7 % (38.7-73.9); Platelet Count 239 T/CUMM (130-400); Red Blood Count 4.27 MC/CUMM (3.8-5.5); Red Cell Distribution Width 12.7 % (9.3-17.3); White Blood Count 12.7 T/CUMM (4-12)
[2019-12-25 02:00] LABS: Apearance,Urine CLEAR (Clear); Bacteria,Urine Moderate /HPF (Few); Bilirubin,Urine Negative (Negative); Blood, Urine Negative (Negative); Glucose,Urine (UA) Negative (Negative); Ketones,Urine Negative (Negative); Mucus,Urine Occasional /LPF (Occasional); Nitrite,Urine Negative (Negative); Protein,Urine Negative; Squamous Epithelial Cell,Urine Occasional /HPF (0-10); Urine Color Yellow (Yellow); Urine Urobilinogen < 2.0 EU/DL (0.2-1.0); WBC,Urine <1 /HPF (0-6)
[2019-12-25] MEDS ORDERED: SODIUM CHLORIDE 0.9% 1,000 ML IV STA (02:02)
[2019-12-25 02:15] LABS: Albumin 3.6 G/DL (3.4-5.0); Bilirubin,Total 0.7 MG/DL (0.2-1.0); Calcium 8.6 MG/DL (8.5-10.1); Total Protein 6.7 G/DL (6.4-8.3)
[2019-12-25] MEDS ORDERED: POTASSIUM CHLORIDE 20 MEQ TABLET PO STA (02:26)
[2019-12-25] MEDS ORDERED: POTASSIUM CHLORIDE RIDER 20 MEQ in PREMIX 1 EACH IV STA ×2 (02:27→02:46)
[2019-12-25] MEDS ORDERED: POTASSIUM CHLORIDE RIDER 100 ML IV STA (02:34)
[2019-12-25] MEDS ORDERED: ONDANSETRON 4 MG/2 ML VIAL IV PRN (02:44)
[2019-12-25] MEDS ORDERED: ACETAMINOPHEN 325 MG TABLET PO PRN (02:44)
[2019-12-25] MEDS ORDERED: POTASSIUM CHLORIDE RIDER 100 ML IV ONE (02:51)
[2019-12-25] MEDS: POTASSIUM CHLORIDE RIDER 100 ML IV SCH ×2 (04:02→10:06)
[2019-12-25 05:08] LABS: Basophils % 0.2 % (0.0-0.8); Eosinophils % 0.2 % (0.00-10.9); Hematocrit 36.8 VOL% (35.7-47.0); Hemoglobin 12.1 GM/DL (12.0-16.0); Immature Granulocytes % 0.5 %; Immature Granulocytes Absolute 0.06 #; Lymphocytes # 1.2 10*3/uL (1.4-4.0); Lymphocytes % 9.6 % (21.3-54.2); Mean Corpuscular HGB Conc 32.9 GM/DL (32-36); Mean Corpuscular Volume 91.3 FL (87-102); Mean Platelet Volume 10.8 FL (9.6-12.0); Monocytes % 4.6 % (1.7-12.7); Neutrophils % 84.9 % (38.7-73.9); Platelet Count 207 T/CUMM (130-400); Red Blood Count 4.03 MC/CUMM (3.8-5.5); Red Cell Distribution Width 12.6 % (9.3-17.3); White Blood Count 12.5 T/CUMM (4-12)
[2019-12-25 05:45] LABS: Albumin 3.3 G/DL (3.4-5.0); Calcium 7.8 MG/DL (8.5-10.1); Osmolality,Calculated 278.8 MOS/KG (273-304)
[2019-12-25] MEDS: TRIAMTERENE/HCTZ 37.5-25 MG CAPSULE PO SCH (09:23)
[2019-12-25] MEDS: MONTELUKAST 10 MG TABLET PO SCH (09:24)
[2019-12-25] MEDS: FUROSEMIDE 40 MG TABLET PO SCH (09:24)
[2019-12-25] MEDS: LORATADINE 10 MG TABLET PO SCH (09:24)
[2019-12-25] MEDS: CYANOCOBALAMIN 500 MCG TABLET PO SCH (09:24)
[2019-12-25] MEDS: LOSARTAN 50 MG TABLET PO SCH ×2 (09:24→20:18)
[2019-12-25] MEDS: GLIMEPIRIDE 2 MG TABLET PO SCH (09:24)
[2019-12-25] MEDS: LEVOTHYROXINE 150 MCG TABLET PO SCH (09:24)
[2019-12-25] MEDS: VITAMIN E 400 UNIT CAPSULE PO SCH (09:24)
[2019-12-25] MEDS: sitaGLIPtin 100 MG TABLET PO SCH (09:24)
[2019-12-25] MEDS: ATORVASTATIN 20 MG TABLET PO SCH (09:24)
[2019-12-25] MEDS: SELENIUM 200 MCG TABLET PO SCH (09:24)
[2019-12-25] MEDS: ASCORBIC ACID 500 MG TABLET PO SCH (09:24)
[2019-12-25] MEDS: SERTRALINE 25 MG TABLET PO SCH (09:24)
[2019-12-25] MEDS: PANTOPRAZOLE 40 MG VIAL IV SCH (09:25)
[2019-12-25] MEDS ORDERED: MAGNESIUM SULF RIDER 4 GM in PREMIX 1 EACH IV PRN (09:45)
[2019-12-25] MEDS: DICYCLOMINE 10 MG CAPSULE PO SCH ×3 (11:26→20:18)
[2019-12-25] MEDS: MAGNESIUM SULF RIDER 2 GM in PREMIX 1 EACH IV PRN (11:43)
[2019-12-25] MEDS: WARFARIN 5 MG TABLET PO SCH (17:17)
[2019-12-25] MEDS: PRAMIPEXOLE 0.25 MG TABLET PO SCH (20:18)
[2019-12-25] MEDS: DONEPEZIL 10 MG TABLET PO SCH (20:18)
[2019-12-26 04:42] LABS: Basophils # 0.1 10*3/uL (0.0-0.2); Basophils % 0.6 % (0.0-0.8); Eosinophils # 0.3 10*3/uL (0.0-0.87); Eosinophils % 3.3 % (0.00-10.9); Hematocrit 35.9 VOL% (35.7-47.0); Hemoglobin 11.8 GM/DL (12.0-16.0); Immature Granulocytes % 0.6 %; Immature Granulocytes Absolute 0.05 #; Lymphocytes # 2.6 10*3/uL (1.4-4.0); Lymphocytes % 29.4 % (21.3-54.2); Mean Corpuscular HGB Conc 32.9 GM/DL (32-36); Mean Corpuscular Volume 91.3 FL (87-102); Mean Platelet Volume 10.4 FL (9.6-12.0); Monocytes % 7.9 % (1.7-12.7); Neutrophils % 58.2 % (38.7-73.9); Platelet Count 217 T/CUMM (130-400); Red Blood Count 3.93 MC/CUMM (3.8-5.5); Red Cell Distribution Width 12.9 % (9.3-17.3); White Blood Count 8.7 T/CUMM (4-12)
[2019-12-26 05:06] LABS: Calcium 8.6 MG/DL (8.5-10.1); Osmolality,Calculated 283.3 MOS/KG (273-304)
[2019-12-26] MEDS: ATORVASTATIN 20 MG TABLET PO SCH (09:36)
[2019-12-26] MEDS: SERTRALINE 25 MG TABLET PO SCH (09:36)
[2019-12-26] MEDS: ASCORBIC ACID 500 MG TABLET PO SCH (09:36)
[2019-12-26] MEDS: CYANOCOBALAMIN 500 MCG TABLET PO SCH (09:36)
[2019-12-26] MEDS: GLIMEPIRIDE 2 MG TABLET PO SCH (09:37)
[2019-12-26] MEDS: TRIAMTERENE/HCTZ 37.5-25 MG CAPSULE PO SCH (09:37)
[2019-12-26] MEDS: DICYCLOMINE 10 MG CAPSULE PO SCH ×4 (09:37→20:28)
[2019-12-26] MEDS: LOSARTAN 50 MG TABLET PO SCH ×2 (09:37→20:29)
[2019-12-26] MEDS: LORATADINE 10 MG TABLET PO SCH (09:37)
[2019-12-26] MEDS: LEVOTHYROXINE 150 MCG TABLET PO SCH (09:37)
[2019-12-26] MEDS: MONTELUKAST 10 MG TABLET PO SCH (09:37)
[2019-12-26] MEDS: PANTOPRAZOLE 40 MG VIAL IV SCH (09:38)
[2019-12-26] MEDS: FUROSEMIDE 40 MG TABLET PO SCH (09:38)
[2019-12-26] MEDS: sitaGLIPtin 100 MG TABLET PO SCH (09:38)
[2019-12-26] MEDS: VITAMIN E 400 UNIT CAPSULE PO SCH (09:43)
[2019-12-26] MEDS: SELENIUM 200 MCG TABLET PO SCH (09:43)
[2019-12-26] MEDS: POTASSIUM CHLORIDE 20 MEQ TABLET PO PRN ×4 (10:24→17:04)
[2019-12-26] MEDS ORDERED: WARFARIN 7.5 MG TABLET PO SCH (18:00)
[2019-12-26] MEDS: DONEPEZIL 10 MG TABLET PO SCH (20:27)
[2019-12-26] MEDS: PRAMIPEXOLE 0.25 MG TABLET PO SCH (20:30)
[2019-12-27 04:53] LABS: INR 1.5; PT Patient Result 15.9 SECS (9.6-12.2)
[2019-12-27] MEDS ORDERED: ceFAZolin 1,000 MG VIAL IRRIG ONE (08:09)
[2019-12-27] MEDS ORDERED: ceFAZolin 1,000 MG in SYRINGE 1 EACH IV ONE (08:09)
[2019-12-27 09:23] LABS: Calcium 9.2 MG/DL (8.5-10.1); Osmolality,Calculated 277.7 MOS/KG (273-304)
[2019-12-27] MEDS: MONTELUKAST 10 MG TABLET PO SCH (09:28)
[2019-12-27] MEDS: CYANOCOBALAMIN 500 MCG TABLET PO SCH (09:28)
[2019-12-27] MEDS: ASCORBIC ACID 500 MG TABLET PO SCH (09:28)
[2019-12-27] MEDS: ATORVASTATIN 20 MG TABLET PO SCH (09:28)
[2019-12-27] MEDS: LORATADINE 10 MG TABLET PO SCH (09:28)
[2019-12-27] MEDS: TRIAMTERENE/HCTZ 37.5-25 MG CAPSULE PO SCH (09:28)
[2019-12-27] MEDS: GLIMEPIRIDE 2 MG TABLET PO SCH (09:28)
[2019-12-27] MEDS: LEVOTHYROXINE 150 MCG TABLET PO SCH (09:28)
[2019-12-27] MEDS: DICYCLOMINE 10 MG CAPSULE PO SCH ×4 (09:29→20:58)
[2019-12-27] MEDS: sitaGLIPtin 100 MG TABLET PO SCH (09:29)
[2019-12-27] MEDS: LOSARTAN 50 MG TABLET PO SCH ×2 (09:29→20:57)
[2019-12-27] MEDS: SERTRALINE 25 MG TABLET PO SCH (09:29)
[2019-12-27] MEDS: FUROSEMIDE 40 MG TABLET PO SCH (09:29)
[2019-12-27] MEDS: PANTOPRAZOLE 40 MG VIAL IV SCH (09:29)
[2019-12-27] MEDS: SELENIUM 200 MCG TABLET PO SCH (09:30)
[2019-12-27] MEDS: VITAMIN E 400 UNIT CAPSULE PO SCH (09:31)
[2019-12-27] MEDS: ENOXAPARIN 100 MG/ML SYRINGE SUBCUT SCH ×2 (09:35→20:57)
[2019-12-27] MEDS ORDERED: POTASSIUM CHLORIDE 20 MEQ TABLET PO ONE (13:50)
[2019-12-27] MEDS: PRAMIPEXOLE 0.25 MG TABLET PO SCH (20:57)
[2019-12-27] MEDS: DONEPEZIL 10 MG TABLET PO SCH (20:57)
[2019-12-28 06:34] LABS: Basophils # 0.1 10*3/uL (0.0-0.2); Basophils % 0.7 % (0.0-0.8); Eosinophils # 0.4 10*3/uL (0.0-0.87); Eosinophils % 3.8 % (0.00-10.9); Hematocrit 39.8 VOL% (35.7-47.0); Hemoglobin 13.2 GM/DL (12.0-16.0); Immature Granulocytes % 0.7 %; Immature Granulocytes Absolute 0.07 #; Lymphocytes # 3.3 10*3/uL (1.4-4.0); Lymphocytes % 31.2 % (21.3-54.2); Mean Corpuscular HGB Conc 33.2 GM/DL (32-36); Mean Corpuscular Volume 90.9 FL (87-102); Mean Platelet Volume 10.7 FL (9.6-12.0); Monocytes % 9.3 % (1.7-12.7); Neutrophils % 54.3 % (38.7-73.9); Platelet Count 228 T/CUMM (130-400); Red Blood Count 4.38 MC/CUMM (3.8-5.5); Red Cell Distribution Width 12.8 % (9.3-17.3); White Blood Count 10.6 T/CUMM (4-12)
[2019-12-28 06:46] LABS: INR 1.2; PT Patient Result 12.9 SECS (9.6-12.2)
[2019-12-28 06:51] LABS: Osmolality,Calculated 272.1 MOS/KG (273-304)
[2019-12-28] MEDS: DICYCLOMINE 10 MG CAPSULE PO SCH ×4 (09:59→21:13)
[2019-12-28] MEDS: LORATADINE 10 MG TABLET PO SCH (09:59)
[2019-12-28] MEDS: GLIMEPIRIDE 2 MG TABLET PO SCH (09:59)
[2019-12-28] MEDS: LOSARTAN 50 MG TABLET PO SCH ×2 (10:00→21:13)
[2019-12-28] MEDS: sitaGLIPtin 100 MG TABLET PO SCH (10:00)
[2019-12-28] MEDS: TRIAMTERENE/HCTZ 37.5-25 MG CAPSULE PO SCH (10:00)
[2019-12-28] MEDS: LEVOTHYROXINE 150 MCG TABLET PO SCH (10:01)
[2019-12-28] MEDS: atenoloL 25 MG TABLET PO SCH (10:01)
[2019-12-28] MEDS: SELENIUM 200 MCG TABLET PO SCH (10:01)
[2019-12-28] MEDS: ATORVASTATIN 20 MG TABLET PO SCH (10:01)
[2019-12-28] MEDS: MONTELUKAST 10 MG TABLET PO SCH (10:01)
[2019-12-28] MEDS: CYANOCOBALAMIN 500 MCG TABLET PO SCH (10:04)
[2019-12-28] MEDS: VITAMIN E 400 UNIT CAPSULE PO SCH (10:04)
[2019-12-28] MEDS: ASCORBIC ACID 500 MG TABLET PO SCH (10:04)
[2019-12-28] MEDS: SERTRALINE 25 MG TABLET PO SCH (10:04)
[2019-12-28] MEDS: PANTOPRAZOLE 40 MG VIAL IV SCH (10:09)
[2019-12-28] MEDS: FUROSEMIDE 40 MG TABLET PO SCH (10:13)
[2019-12-28] MEDS: SODIUM CHLORIDE 0.9% 1,000 ML IV SCH (10:54)
[2019-12-28] MEDS: POTASSIUM CHLORIDE 20 MEQ TABLET PO PRN ×4 (12:12→18:48)
[2019-12-28] MEDS: MAGNESIUM SULF RIDER 2 GM in PREMIX 1 EACH IV PRN (12:17)
[2019-12-28] MEDS ORDERED: DIAZEPAM 5 MG TABLET PO ONE (13:00)
[2019-12-28] MEDS ORDERED: diphenhydrAMINE CAP 25 MG CAPSULE PO ONE (13:00)
[2019-12-28] MEDS ORDERED: HEPARIN/NACL 0.9% 2 UNITS/ML 500 ML IV ONE (14:27)
[2019-12-28] MEDS ORDERED: LIDOCAINE 1%/EPI INJ 20 ML VIAL ONE (14:27)
[2019-12-28] MEDS ORDERED: ceFAZolin 1,000 MG VIAL ONE (14:27)
[2019-12-28] MEDS ORDERED: fentaNYL 100 MCG/2 ML VIAL ONE ×2 (14:29→15:58)
[2019-12-28] MEDS ORDERED: MIDAZOLAM 2 MG/2 ML VIAL ONE ×2 (14:29→15:16)
[2019-12-28] MEDS ORDERED: oxyCODONE/ACETAMINOPHEN 5-325 MG TABLET PO PRN (15:56)
[2019-12-28] MEDS: DONEPEZIL 10 MG TABLET PO SCH (21:13)
[2019-12-28] MEDS: PRAMIPEXOLE 0.25 MG TABLET PO SCH (21:13)
[2019-12-29 07:02] LABS: Basophils # 0.1 10*3/uL (0.0-0.2); Basophils % 0.5 % (0.0-0.8); Eosinophils # 0.3 10*3/uL (0.0-0.87); Eosinophils % 2.9 % (0.00-10.9); Hematocrit 37.7 VOL% (35.7-47.0); Hemoglobin 12.2 GM/DL (12.0-16.0); Immature Granulocytes % 0.6 %; Immature Granulocytes Absolute 0.06 #; Lymphocytes # 1.8 10*3/uL (1.4-4.0); Lymphocytes % 16.4 % (21.3-54.2); Mean Corpuscular HGB Conc 32.4 GM/DL (32-36); Mean Corpuscular Volume 93.1 FL (87-102); Mean Platelet Volume 10.5 FL (9.6-12.0); Neutrophils % 70.6 % (38.7-73.9); Platelet Count 217 T/CUMM (130-400); Red Blood Count 4.05 MC/CUMM (3.8-5.5); White Blood Count 10.7 T/CUMM (4-12)
[2019-12-29 07:30] LABS: Calcium 8.7 MG/DL (8.5-10.1); Osmolality,Calculated 275.8 MOS/KG (273-304)
[2019-12-29] MEDS: MONTELUKAST 10 MG TABLET PO SCH (09:32)
[2019-12-29] MEDS: PANTOPRAZOLE 40 MG VIAL IV SCH (09:32)
[2019-12-29] MEDS: TRIAMTERENE/HCTZ 37.5-25 MG CAPSULE PO SCH (09:32)
[2019-12-29] MEDS: ATORVASTATIN 20 MG TABLET PO SCH (09:33)
[2019-12-29] MEDS: SELENIUM 200 MCG TABLET PO SCH (09:33)
[2019-12-29] MEDS: ASCORBIC ACID 500 MG TABLET PO SCH (09:33)
[2019-12-29] MEDS: sitaGLIPtin 100 MG TABLET PO SCH (09:33)
[2019-12-29] MEDS: DICYCLOMINE 10 MG CAPSULE PO SCH ×4 (09:34→21:11)
[2019-12-29] MEDS: LOSARTAN 50 MG TABLET PO SCH ×2 (09:34→21:11)
[2019-12-29] MEDS: CYANOCOBALAMIN 500 MCG TABLET PO SCH (09:34)
[2019-12-29] MEDS: atenoloL 25 MG TABLET PO SCH (09:34)
[2019-12-29] MEDS: GLIMEPIRIDE 2 MG TABLET PO SCH (09:34)
[2019-12-29] MEDS: FUROSEMIDE 40 MG TABLET PO SCH (09:34)
[2019-12-29] MEDS: LEVOTHYROXINE 150 MCG TABLET PO SCH (09:34)
[2019-12-29] MEDS: VITAMIN E 400 UNIT CAPSULE PO SCH (09:34)
[2019-12-29] MEDS: LORATADINE 10 MG TABLET PO SCH (09:34)
[2019-12-29] MEDS: SERTRALINE 25 MG TABLET PO SCH (09:34)
[2019-12-29] MEDS: SODIUM CHLORIDE 0.9% 1,000 ML IV SCH (17:06)
[2019-12-29] MEDS: WARFARIN 5 MG TABLET PO SCH (17:43)
[2019-12-29] MEDS: PRAMIPEXOLE 0.25 MG TABLET PO SCH (21:11)
[2019-12-29] MEDS: DONEPEZIL 10 MG TABLET PO SCH (21:11)
[2019-12-30 06:40] LABS: Basophils % 0.4 % (0.0-0.8); Eosinophils # 0.3 10*3/uL (0.0-0.87); Eosinophils % 3.1 % (0.00-10.9); Hematocrit 38.9 VOL% (35.7-47.0); Hemoglobin 12.3 GM/DL (12.0-16.0); Immature Granulocytes % 0.6 %; Immature Granulocytes Absolute 0.06 #; Lymphocytes # 2.4 10*3/uL (1.4-4.0); Lymphocytes % 22.3 % (21.3-54.2); Mean Corpuscular HGB Conc 31.6 GM/DL (32-36); Mean Corpuscular Volume 95.1 FL (87-102); Mean Platelet Volume 10.6 FL (9.6-12.0); Monocytes % 9.3 % (1.7-12.7); Neutrophils % 64.3 % (38.7-73.9); Platelet Count 206 T/CUMM (130-400); Red Blood Count 4.09 MC/CUMM (3.8-5.5); White Blood Count 10.5 T/CUMM (4-12)
[2019-12-30 06:42] LABS: Calcium 8.8 MG/DL (8.5-10.1); Osmolality,Calculated 277.7 MOS/KG (273-304)
[2019-12-30] MEDS: sitaGLIPtin 100 MG TABLET PO SCH (08:58)
[2019-12-30] MEDS: SERTRALINE 25 MG TABLET PO SCH (08:59)
[2019-12-30] MEDS: LOSARTAN 50 MG TABLET PO SCH (08:59)
[2019-12-30] MEDS: LORATADINE 10 MG TABLET PO SCH (08:59)
[2019-12-30] MEDS: FUROSEMIDE 40 MG TABLET PO SCH (08:59)
[2019-12-30] MEDS: CYANOCOBALAMIN 500 MCG TABLET PO SCH (08:59)
[2019-12-30] MEDS: atenoloL 25 MG TABLET PO SCH (08:59)
[2019-12-30] MEDS: VITAMIN E 400 UNIT CAPSULE PO SCH (09:00)
[2019-12-30] MEDS: ASCORBIC ACID 500 MG TABLET PO SCH (09:00)
[2019-12-30] MEDS: GLIMEPIRIDE 2 MG TABLET PO SCH (09:00)
[2019-12-30] MEDS: ATORVASTATIN 20 MG TABLET PO SCH (09:00)
[2019-12-30] MEDS: TRIAMTERENE/HCTZ 37.5-25 MG CAPSULE PO SCH (09:00)
[2019-12-30] MEDS: DICYCLOMINE 10 MG CAPSULE PO SCH ×2 (09:00→11:39)
[2019-12-30] MEDS: SELENIUM 200 MCG TABLET PO SCH (09:00)
[2019-12-30] MEDS: MONTELUKAST 10 MG TABLET PO SCH (09:00)
[2019-12-30] MEDS: POTASSIUM CHLORIDE 20 MEQ TABLET PO PRN ×2 (09:00→11:39)
[2019-12-30] MEDS: PANTOPRAZOLE 40 MG VIAL IV SCH (09:01)
[2019-12-30] MEDS: LEVOTHYROXINE 150 MCG TABLET PO SCH (09:01)
[2019-12-30 14:41] VITALS: BP 116/52
[2019-12-30] MEDS ORDERED: WARFARIN 5 MG TABLET PO SCH (18:00)
[2019-12-30] MEDS ORDERED: POTASSIUM CHLORIDE 10 MEQ TABLET PO SCH (21:00)
[2020-01-01] MEDS ORDERED: WARFARIN 7.5 MG TABLET PO SCH (18:00)
[2020-01-01 19:41] LABS: CDT Result Negative (Negative); CDT Specimen Source STOOL
== END 2019-12-30 15:45 | disposition home or self-care (01) | DRG 244 ==
LOC: EDBD → EDUNIT# → N.ED 00:06 → N.EDINP 00:06 → N.TELEN 03:01
PROVIDERS: ADMIT Family Medicine; ATTEND Family Medicine

== ENCOUNTER 2021-08-09 16:57 | Inpatient (IN) ==
[2021-08-09 18:25] LABS: Basophils # 0.1 10*3/uL (0.0-0.2); Basophils % 0.5 % (0.0-0.8); Eosinophils # 0.4 10*3/uL (0.0-0.87); Eosinophils % 4.1 % (0.00-10.9); Hematocrit 40.2 VOL% (35.7-47.0); Hemoglobin 12.9 GM/DL (12.0-16.0); Immature Granulocytes % 0.4 %; Immature Granulocytes Absolute 0.04 #; Lymphocytes # 1.7 10*3/uL (1.4-4.0); Lymphocytes % 18.1 % (21.3-54.2); Mean Corpuscular HGB Conc 32.1 GM/DL (32-36); Mean Corpuscular Volume 93.3 FL (87-102); Mean Platelet Volume 10.5 FL (9.6-12.0); Monocytes % 8.6 % (1.7-12.7); Neutrophils % 68.3 % (38.7-73.9); Platelet Count 224 T/CUMM (130-400); Red Blood Count 4.31 MC/CUMM (3.8-5.5); Red Cell Distribution Width 13.1 % (9.3-17.3); White Blood Count 9.5 T/CUMM (4-12)
[2021-08-09 18:34] LABS: Bilirubin,Urine Negative (Negative); Blood, Urine Negative (Negative); Glucose,Urine (UA) Negative (Negative); Ketones,Urine Negative (Negative); Nitrite,Urine Negative (Negative); Protein,Urine Negative; RBC,Urine <1 /HPF (0-4); Squamous Epithelial Cell,Urine Occasional /HPF (0-10); Urine Appearance CLEAR (Clear); Urine Color Colorless (Yellow); Urine Specific Gravity 1.003 (1.001-1.035); Urine Urobilinogen < 2.0 EU/DL (0.2-1.0)
[2021-08-09 18:50] LABS: Albumin 4.1 G/DL (3.4-5.0); Bilirubin,Total 0.5 MG/DL (0.20-1.00); Calcium 9.2 MG/DL (8.5-10.1); Osmolality,Calculated 277.7 MOS/KG (273-304); Potassium 3.4 MMOL/L (3.5-5.1); Total Protein 7.3 G/DL (6.4-8.2)
[2021-08-09] MEDS ORDERED: KETOROLAC 30 MG/1 ML VIAL IV STA (18:59)
[2021-08-09] MEDS ORDERED: METOPROLOL TARTRATE 25 MG TABLET PO STA (20:38)
[2021-08-09] MEDS ORDERED: ONDANSETRON 4 MG/2 ML VIAL IV PRN (23:21)
[2021-08-09] MEDS ORDERED: ACETAMINOPHEN 325 MG TABLET PO PRN (23:21)
[2021-08-10] MEDS: traMADol 50 MG TABLET PO PRN (01:47)
[2021-08-10] MEDS ORDERED: PROMETHAZINE 25 MG TABLET PO PRN (08:18)
[2021-08-10] MEDS ORDERED: IBUPROFEN 200 MG TABLET PO PRN (08:18)
[2021-08-10] MEDS ORDERED: MONTELUKAST 10 MG TABLET PO PRN (08:18)
[2021-08-10 08:42] LABS: INR 3.3; PT Patient Result 34.2 SECS (10.5-12.0)
[2021-08-10] MEDS: DICYCLOMINE 10 MG CAPSULE PO SCH ×3 (09:22→20:23)
[2021-08-10] MEDS: FUROSEMIDE 40 MG TABLET PO SCH (09:25)
[2021-08-10] MEDS: MAGNESIUM CHLORIDE 64 MG TABLET PO SCH (09:26)
[2021-08-10] MEDS: DOCUSATE SODIUM 100 MG CAPSULE PO SCH (09:26)
[2021-08-10] MEDS: LEVOTHYROXINE 150 MCG TABLET PO SCH (09:26)
[2021-08-10] MEDS: sitaGLIPtin 25 MG TABLET PO SCH (09:26)
[2021-08-10] MEDS: ASCORBIC ACID 500 MG TABLET PO SCH (09:26)
[2021-08-10] MEDS: FERROUS SULFATE 325 MG TABLET PO SCH (09:26)
[2021-08-10] MEDS: CHOLECALCIFEROL 5,000 UNIT TABLET PO SCH (09:27)
[2021-08-10] MEDS: atenoloL 50 MG TABLET PO SCH (09:27)
[2021-08-10] MEDS: ASPIRIN EC 81 MG TABLET PO SCH (09:27)
[2021-08-10] MEDS: POTASSIUM CHLORIDE 10 MEQ TABLET PO SCH ×2 (09:27→20:23)
[2021-08-10] MEDS: PANTOPRAZOLE 40 MG TABLET PO SCH (09:27)
[2021-08-10] MEDS: WARFARIN 5 MG TABLET PO SCH (17:11)
[2021-08-10] MEDS: LOSARTAN 50 MG TABLET PO SCH (18:32)
[2021-08-10] MEDS: SERTRALINE 25 MG TABLET PO SCH (20:24)
[2021-08-10] MEDS: ATORVASTATIN 20 MG TABLET PO SCH (20:24)
[2021-08-10] MEDS: PRAMIPEXOLE 0.25 MG TABLET PO SCH (20:24)
[2021-08-10] MEDS: LORATADINE 10 MG TABLET PO SCH (20:24)
[2021-08-10] MEDS: SELENIUM 200 MCG TABLET PO SCH (21:11)
[2021-08-11 06:10] LABS: INR 2.5; PT Patient Result 25.7 SECS (10.5-12.0)
[2021-08-11] MEDS: GLIMEPIRIDE 2 MG TABLET PO SCH (07:57)
[2021-08-11 08:42] LABS: Basophils # 0.1 10*3/uL (0.0-0.2); Basophils % 0.7 % (0.0-0.8); Eosinophils # 0.5 10*3/uL (0.0-0.87); Eosinophils % 6.8 % (0.00-10.9); Hematocrit 35.5 VOL% (35.7-47.0); Hemoglobin 11.4 GM/DL (12.0-16.0); Immature Granulocytes % 0.7 %; Immature Granulocytes Absolute 0.05 #; Lymphocytes # 1.8 10*3/uL (1.4-4.0); Lymphocytes % 25.9 % (21.3-54.2); Mean Corpuscular HGB Conc 32.1 GM/DL (32-36); Mean Corpuscular Volume 94.7 FL (87-102); Mean Platelet Volume 10.9 FL (9.6-12.0); Monocytes % 10.5 % (1.7-12.7); Neutrophils % 55.4 % (38.7-73.9); Platelet Count 199 T/CUMM (130-400); Red Blood Count 3.75 MC/CUMM (3.8-5.5); Red Cell Distribution Width 13.2 % (9.3-17.3)
[2021-08-11 08:44] LABS: Uric Acid 7.1 MG/DL (2.6-6.0)
[2021-08-11] MEDS: PANTOPRAZOLE 40 MG TABLET PO SCH (09:26)
[2021-08-11] MEDS: FUROSEMIDE 40 MG TABLET PO SCH (09:26)
[2021-08-11] MEDS: sitaGLIPtin 25 MG TABLET PO SCH (09:26)
[2021-08-11] MEDS: atenoloL 50 MG TABLET PO SCH (09:26)
[2021-08-11] MEDS: ASPIRIN EC 81 MG TABLET PO SCH (09:26)
[2021-08-11] MEDS: POTASSIUM CHLORIDE 10 MEQ TABLET PO SCH ×2 (09:26→20:25)
[2021-08-11] MEDS: ASCORBIC ACID 500 MG TABLET PO SCH (09:26)
[2021-08-11] MEDS: DICYCLOMINE 10 MG CAPSULE PO SCH ×3 (09:26→20:25)
[2021-08-11] MEDS: LEVOTHYROXINE 150 MCG TABLET PO SCH (09:26)
[2021-08-11] MEDS: LOSARTAN 50 MG TABLET PO SCH (18:04)
[2021-08-11] MEDS: WARFARIN 7.5 MG TABLET PO SCH (18:15)
[2021-08-11] MEDS ORDERED: CELECOXIB 200 MG CAPSULE PO ONE (18:17)
[2021-08-11] MEDS: LORATADINE 10 MG TABLET PO SCH (20:25)
[2021-08-11] MEDS: SERTRALINE 25 MG TABLET PO SCH (20:25)
[2021-08-11] MEDS: PRAMIPEXOLE 0.25 MG TABLET PO SCH (20:25)
[2021-08-11] MEDS: ATORVASTATIN 20 MG TABLET PO SCH (20:26)
[2021-08-11] MEDS: SELENIUM 200 MCG TABLET PO SCH (20:28)
[2021-08-12] MEDS: GLIMEPIRIDE 2 MG TABLET PO SCH (09:51)
[2021-08-12] MEDS: DOCUSATE SODIUM 100 MG CAPSULE PO SCH (09:52)
[2021-08-12] MEDS: FERROUS SULFATE 325 MG TABLET PO SCH (09:52)
[2021-08-12] MEDS: MAGNESIUM CHLORIDE 64 MG TABLET PO SCH (09:52)
[2021-08-12] MEDS: ASPIRIN EC 81 MG TABLET PO SCH (09:53)
[2021-08-12] MEDS: DICYCLOMINE 10 MG CAPSULE PO SCH ×3 (09:53→22:02)
[2021-08-12] MEDS: POTASSIUM CHLORIDE 10 MEQ TABLET PO SCH ×2 (09:54→22:02)
[2021-08-12] MEDS: FUROSEMIDE 40 MG TABLET PO SCH (09:54)
[2021-08-12] MEDS: CELECOXIB 200 MG CAPSULE PO SCH (09:54)
[2021-08-12] MEDS: sitaGLIPtin 25 MG TABLET PO SCH (09:54)
[2021-08-12] MEDS: PANTOPRAZOLE 40 MG TABLET PO SCH (09:54)
[2021-08-12] MEDS: ASCORBIC ACID 500 MG TABLET PO SCH (09:55)
[2021-08-12] MEDS: atenoloL 50 MG TABLET PO SCH (09:55)
[2021-08-12] MEDS: CHOLECALCIFEROL 5,000 UNIT TABLET PO SCH (09:55)
[2021-08-12] MEDS: LEVOTHYROXINE 150 MCG TABLET PO SCH (09:55)
[2021-08-12] MEDS: WARFARIN 5 MG TABLET PO SCH (18:55)
[2021-08-12] MEDS: PRAMIPEXOLE 0.25 MG TABLET PO SCH (22:02)
[2021-08-12] MEDS: SERTRALINE 25 MG TABLET PO SCH (22:02)
[2021-08-12] MEDS: LOSARTAN 50 MG TABLET PO SCH (22:02)
[2021-08-12] MEDS: LORATADINE 10 MG TABLET PO SCH (22:02)
[2021-08-12] MEDS: ATORVASTATIN 20 MG TABLET PO SCH (22:02)
[2021-08-12] MEDS: SELENIUM 200 MCG TABLET PO SCH (22:06)
[2021-08-13 06:36] LABS: INR 1.7; PT Patient Result 18.5 SECS (10.5-12.0)
[2021-08-13] MEDS: GLIMEPIRIDE 2 MG TABLET PO SCH (13:22)
[2021-08-13] MEDS: POTASSIUM CHLORIDE 10 MEQ TABLET PO SCH ×2 (13:23→21:28)
[2021-08-13] MEDS: LEVOTHYROXINE 150 MCG TABLET PO SCH (13:23)
[2021-08-13] MEDS: CELECOXIB 200 MG CAPSULE PO SCH (13:23)
[2021-08-13] MEDS: sitaGLIPtin 25 MG TABLET PO SCH (13:23)
[2021-08-13] MEDS: FUROSEMIDE 40 MG TABLET PO SCH (13:23)
[2021-08-13] MEDS: PANTOPRAZOLE 40 MG TABLET PO SCH (13:23)
[2021-08-13] MEDS: ASCORBIC ACID 500 MG TABLET PO SCH (13:24)
[2021-08-13] MEDS: DICYCLOMINE 10 MG CAPSULE PO SCH ×3 (13:24→21:29)
[2021-08-13] MEDS: atenoloL 50 MG TABLET PO SCH (13:24)
[2021-08-13] MEDS: ASPIRIN EC 81 MG TABLET PO SCH (13:27)
[2021-08-13] MEDS: LOSARTAN 50 MG TABLET PO SCH (19:10)
[2021-08-13] MEDS: WARFARIN 7.5 MG TABLET PO SCH (19:10)
[2021-08-13 20:57] LABS: Cholesterol Crystals None Seen /LPF; Lymphocytes,Synovial Fluid 33 %; Neutrophils,Synovial Fluid 67 %
[2021-08-13] MEDS: PRAMIPEXOLE 0.25 MG TABLET PO SCH (21:28)
[2021-08-13] MEDS: traMADol 50 MG TABLET PO PRN (21:28)
[2021-08-13] MEDS: SERTRALINE 25 MG TABLET PO SCH (21:29)
[2021-08-13] MEDS: ATORVASTATIN 20 MG TABLET PO SCH (21:29)
[2021-08-13] MEDS: SELENIUM 200 MCG TABLET PO SCH (21:29)
[2021-08-13] MEDS: LORATADINE 10 MG TABLET PO SCH (21:29)
[2021-08-14] MEDS ORDERED: COLCHICINE 0.6 MG CAPSULE PO SCH (09:00)
[2021-08-14] MEDS: atenoloL 50 MG TABLET PO SCH (09:40)
[2021-08-14] MEDS: CELECOXIB 200 MG CAPSULE PO SCH (09:41)
[2021-08-14] MEDS: sitaGLIPtin 25 MG TABLET PO SCH (09:41)
[2021-08-14] MEDS: LEVOTHYROXINE 150 MCG TABLET PO SCH (09:41)
[2021-08-14] MEDS: GLIMEPIRIDE 2 MG TABLET PO SCH (09:41)
[2021-08-14] MEDS: CHOLECALCIFEROL 5,000 UNIT TABLET PO SCH (09:42)
[2021-08-14] MEDS: FUROSEMIDE 40 MG TABLET PO SCH (09:42)
[2021-08-14] MEDS: DICYCLOMINE 10 MG CAPSULE PO SCH (09:42)
[2021-08-14] MEDS: POTASSIUM CHLORIDE 10 MEQ TABLET PO SCH (09:42)
[2021-08-14] MEDS: ASPIRIN EC 81 MG TABLET PO SCH (09:43)
[2021-08-14] MEDS: MAGNESIUM CHLORIDE 64 MG TABLET PO SCH (09:43)
[2021-08-14] MEDS: ASCORBIC ACID 500 MG TABLET PO SCH (09:43)
[2021-08-14] MEDS: FERROUS SULFATE 325 MG TABLET PO SCH (09:43)
[2021-08-14] MEDS: PANTOPRAZOLE 40 MG TABLET PO SCH (09:44)
[2021-08-14 10:46] VITALS: BP 128/68
[2021-08-14] MEDS: DOCUSATE SODIUM 100 MG CAPSULE PO SCH (10:49)
== END 2021-08-14 13:22 | disposition home or self-care (01) | DRG 639 ==
LOC: N.EDINP 16:57 → N.ED 16:57 → N.TELEN 08-10 00:35
PROVIDERS: ADMIT Family Medicine; ATTEND Family Medicine